=== PATIENT | male | born 2000 | race Caucasian/White ===

== ENCOUNTER 2025-02-22 21:50 | Emergency (ER) | payer BC, MEDICAID ==
[~2025-02-22] VITALS: Ht 170.2 cm; Wt 184.6 kg
[2025-02-22] MEDS ORDERED: ASPIRIN 325 MG TABLET ONE (23:03)
[2025-02-22] MEDS: ASPIRIN 325 MG TABLET PO ONE (23:15)
[2025-02-22 23:25] LABS: PLATELET COUNT (AUTO) 197 K/uL (150-450); RED BLOOD CELL COUNT(AUTO) 5.59 MIL/uL (4.5-6.0); RED CELL DISTRIBUTION WIDTH 14.8 % (11.5-15.0); WHITE BLOOD COUNT (AUTO) 8.8 K/uL (4.3-11.0)
[2025-02-22 23:34] LABS: CALCIUM, SERUM 9.6 mg/dL (8.5-10.1); CREATININE 1.3 mg/dL (0.6-1.3); SODIUM SERUM 141 mmol/L (136-145); UREA NITROGEN, BLOOD 17 mg/dL (7-18)
[2025-02-22 23:41] LABS: INR 0.97 (0.91-1.10)
[2025-02-23 03:29] VITALS: BP 128/81; TEMP 98; O2SAT 93
== END 2025-02-23 03:29 | disposition home or self-care (01) ==
LOC: ER 22:19
DX: R07.89 Other chest pain (principal); E66.01 Morbid (severe) obesity due to excess calories; F10.10 Alcohol abuse, uncomplicated; I10 Essential (primary) hypertension; Z68.1 Body mass index [BMI] 19.9 or less, adult
CPT/HCPCS: 36415; 71045-TC; 80048-TC; 84484-TC; 85025-TC; 85378-TC; 85730-TC